=== PATIENT | female | born 1965 | race Caucasian/White ===

== ENCOUNTER 2017-01-29 16:23 | Emergency (ER) | payer OTHER, MEDICAID ==
[2017-01-29 16:30] VITALS: BMI 39.4
--- NOTE | 2017-01-29 17:37 | DR.GENAD ---
HPI - PCP Primary Care Physician: KENDELL - Complaint/Symptoms Chief Complaint Doctors Comments: Patient is upset because her pcp referred her to the ED to get her BP controlled. Her systolic is 225. Patient states that she wants her anxiety medication. Chief Complaint:: PT STATES SHE WAS SEEING HER PCP FOR A SINUS INFECTION, CHEST PAINS, AND ANXIETY ATTACK. HER PCP SENT HER HERE DUE TO HER BLOOD PRESSURE BEING HIGH - Source History Provided: Patient - Mode of Arrival Mode of Arrival: Wheelchair - Timing Onset of Chief Complaint: 01/29/17 PMH - PMH Past Medical History: Yes Past Medical History: Anxiety, Arthritis, Asthma, CHF, COPD, Depression, Diabetes, Migraines, Gout, Headaches, Hypertension Past Surgical History: Yes Surgical History: TRANSFERRER Surgery, Hysterectomy, Other - Family History History of Family Medical Conditions: Yes Family Medical History: Diabetes Mellitus, Cancer, Heart Failure, Hypertension - Social History Does patient currently use any type of tobacco product: Yes Have you used tobacco products in the last 12 months: Yes Type of Tobacco Use: Cigarettes How many years tobacco product used: 35 Does any household member use tobacco: No Alcohol Use: None Do you use any recreational Drugs:: No Lives With: Family Lives Where: Home - infectious screening In the last 2 months have you had wt loss of >10#?: NO Have you had fever, night sweats or hemotysis?: No Have you traveled outside the country in the last 6 months?: No Isolation: Standard ROS - Review of Systems Eyes: No Symptoms Reported ENTM: No Symptoms Reported Respiratoy: No Symptoms Reported Cardiovascular: No Symptoms Reported Gastrointestinal/Abdominal: No Symptoms Reported Genitourinary: No Symptoms Reported Neurological: No Symptoms Reported Musculoskeletal: No Symptoms Reported Integumentary: No Symptoms Reported Hematologic/Lymphatic: No Symptoms Reported Endocrine: No Symptoms Reported Psychiatric: No Symptoms Reported All Other Systems: Reviewed and Negative PE - Vital Signs Vitals: Temperature 98.8 F Pulse Rate [Right Radial] 101 Pulse Rate 101 Respiratory Rate 20 Blood Pressure [Right Arm] 189/111 Blood Pressure 237/114 O2 Sat by Pulse Oximetry 96 - General General Appearance: Alert, Anxious - Head Head Exam: Normal Inspection, Atraumatic - Eyes Eye exam: Normal Appearance, PERRL, EOMI - ENT ENT Exam: Normal Exam. negative: Normal Oropharynx External Ear Exam: Normal External Inspection TM/Canal Exam: Bilateral Normal Nose Exam: Normal Nose Exam Mouth Exam: Normal Inspection Throat Exam: Normal Inspection - Neck Neck Exam: Normal Inspection - Chest Chest Inspection: Normal Inspection - Respiratory Respiratory Exam: Normal Lung Sounds Bilat Respiratory Exam: Bilateral Clear to Auscultation - Cardiovascular Cardiovascular Exam: Regular Rate, Normal Rhythm - Abdominal Exam Abdominal Exam: Normal Inspection Abdominal Tenderness: negative: RUQ, RLQ, LUQ, LLQ, Epigastrium, Suprapubic, Diffuse, Mild, Moderate, Severe, Other - Extremities Extremities Exam: Normal Inspection - Back Back Exam: Normal Inspection - Neurologic Neurological Exam: Alert, Oriented X3, CN II-XII Intact - Skin Skin Exam: Warm, Dry, Intact - Diagnosis Discharge Problem: Hypertension, uncontrolled - Discharge Plan Condition: Stable - Follow ups/Referrals Follow ups/Referrals: DO RDZ [Primary Care Provider] - 3 days - Instructions
[2017-01-29] MEDS ORDERED: CATAPRES TAB 0.1 MG PO ONE (17:38)
[2017-01-29] MEDS ORDERED: CATAPRES TAB 0.1 MG ONE (17:41)
[2017-01-29 18:12] VITALS: BP 189/111
== END 2017-01-29 18:30 | disposition left against medical advice (07) ==
LOC: ER 16:44
DX: I10 Essential (primary) hypertension (principal)
CPT/HCPCS: 99281; 99282